=== PATIENT | male | born 1980 ===

== ENCOUNTER 2024-03-15 06:16 | Day surgery (SDC) | payer OTHER ==
[~2024-03-15] VITALS: Ht 162.6 cm; Wt 67.6 kg
[~2024-03-15 06:16] MED LIST: ALL DAY ALLERG1 EACH PO
[2024-03-15] MEDS ORDERED: CIPROFLOXACIN2.5 ML OTIC (10:29)
[2024-03-15] MEDS ORDERED: CEPHALEXIN500 MG PO (10:29)
[2024-03-15] MEDS ORDERED: CIPROFLOXACIN HCL 0.175 MG/DR DROPS OTIC ONE (11:45)
[2024-03-15] MEDS ORDERED: POVIDONE-IODINE 118 ML BOTT TOP ONE (11:45)
[2024-03-15] MEDS ORDERED: CEFAZOLIN SODIUM 1,000 MG VIAL IV SCH (11:45)
[2024-03-15] MEDS ORDERED: NEOMYCIN/BACITRACIN/POLYMYXINB 14 G TUBE TOP ONE (11:45)
[2024-03-15] MEDS ORDERED: LIDOCAINE HCL 1%/EPINEPHRINE 20ML VIAL IJ ONE (11:45)
[2024-03-15] MEDS ORDERED: EPINEPHRINE HCL/PF 1 MG/ML AMPUL IR ONE (11:45)
[2024-03-15] MEDS ORDERED: DEXAMETHASONE 4 MG TABLET PO ONE (13:45)
== END 2024-03-15 12:45 | disposition home or self-care (01) ==
LOC: CIR.AMB 06:16
PROVIDERS: ATTEND Otolaryngology Otology & Neurotology
DX: H80.82 Other otosclerosis, left ear (principal); H90.A12 Conductive hearing loss, unilateral, left ear with restricted hearing on the contralateral side